=== PATIENT | male | born 1950 | race African-American/Black ===

== ENCOUNTER 2017-01-12 14:14 | Inpatient (IN) | payer OTHER, MEDICARE ==
[2017-01-12] VITALS (9 sets, daily range): BP systolic 88–127; BP diastolic 58–86; PULSE 78–116; RESP 15–20; TEMP 98.8–100.5; O2SAT 95–98
[~2017-01-12] VITALS: Ht 175.3 cm; Wt 86.9 kg
[~2017-01-12 14:14] MED LIST: 1-ME1LIQ PO; ACET325 PO; ASPI325T PO; BUSP5 PO; CIPROFLOXACIN 400 MG PREMIX 200 ML IV SCH; DIAZ10 PO; FLUO-1 PO; HYDR-2768 PO; HYDRO50 PO; LISI-366 PO; OMEP20TA39 PO; PRAV40 PO; PULM180I PO; SERT-129 PO; VIAG50TA PO
[2017-01-12] MEDS ORDERED: FISHCAP4 PO (14:47)
[2017-01-12] MEDS ORDERED: AMLO5TAB2 PO (14:47)
[2017-01-12] MEDS ORDERED: HYDR50TA94 PO (14:47)
[2017-01-12] MEDS ORDERED: ASPI325T PO (14:47)
[2017-01-12] MEDS ORDERED: SILD20TA11 PO (14:47)
[2017-01-12] MEDS ORDERED: LISI20TA3 PO (14:47)
[2017-01-12] MEDS ORDERED: POLY99.0 EACH EYE (14:47)
[2017-01-12] MEDS ORDERED: SYMB80AE INH (14:47)
[2017-01-12] MEDS ORDERED: DIAZ10 PO (14:47)
[2017-01-12] MEDS ORDERED: PRAV40TA2 PO (14:47)
[2017-01-12] MEDS ORDERED: OMEP20TA PO (14:47)
[2017-01-12] MEDS ORDERED: SERT-132 PO (14:47)
[2017-01-12] MEDS ORDERED: MORPHINE SULFATE 4 MG/ML INJ IV PUSH ONE (15:00)
[2017-01-12] MEDS ORDERED: SODIUM CHLORIDE 0.9% FLUSH 10 ML FLUSH IV FLUSH PRN (15:00)
[2017-01-12] MEDS ORDERED: ONDANSETRON HCL 4 MG/2 ML VIAL IVP ONE (15:00)
[2017-01-12] MEDS ORDERED: SODIUM CHLOR 0.9% 1000 ML INJ 1,000 ML IV SCH (15:00)
--- NOTE | 2017-01-12 15:10 | PD ---
HPI Chief Complaint: Abdominal Pain Time Seen by Provider: 14:53 Travel History International Travel<30 days: No Contact w/Intl Traveler<30days: No Traveled to known affect area: No History of Present Illness HPI Patient is 66-year-old male who presents to emergency room with complaints of abdominal pain with nausea and vomiting. Patient reports that his symptoms all began on Friday, patient reports that he was feeling nauseous and was vomiting. Patient reports that on Friday, he still felt sick so he decided to take mag citrate to try to clear out his bowels. Patient reports that he did have some watery diarrhea after taking mag citrate. He reports that he is not feeling any better at this time. Patient reports that he is having crampy left lower quadrant abdominal pain, that he is feeling nauseous and is vomiting. Patient reports that he is unable to tolerate any fluids by mouth. Patient reports that he tried eating soup today and ended up throwing it up. Patient denies any fevers, he does admit to having chills. Patient denies any diarrhea. Reports that his last bowel movement was on Friday, he did not have a bowel movement today. Patient denies any chest pain or shortness of breath. Patient with no other complaints. Patient reports that he has had a colonoscopy in the past, reports that his last colonoscopy was 2-3 years ago at the [facility], reports that "everything was normal." PFSH Past Medical History Arthritis: No Asthma: No Anxiety: Yes Depression: Yes Heart Rhythm Problems: No Cancer: No Cardiovascular Problems: Yes (htn) High Cholesterol: Yes Chest Pain: No Congestive Heart Failure: No COPD: Yes Cerebrovascular Accident: Yes Diabetes: No Diminished Hearing: No Endocrine: No GERD: Yes Genitourinary: Yes (enlarged prostate) Headaches: Yes Hepatitis: No Hiatal Hernia: No Hypertension: Yes Immune Disorder: No Kidney Stones: No Musculoskeletal: Yes (Neck & Back Pain ) Neurologic: Yes Psychiatric: Yes Reproductive: No Respiratory: Yes (copd) Migraines: No Myocardial Infarction: No Renal Failure: No Seizures: No Sleep Apnea: No Ulcer: No Influenza Vaccination: Yes ?: Not Past Surgical History Appendectomy: No Cholecystectomy: No Pacemaker: No Other Surgery: No Social History Alcohol Use: Yes (socially beer) Tobacco Use: Yes (1/2 PPD X 20 YEARS) Substance Use: No Allergies-Medications (Allergen,Severity, Reaction): Coded Allergies: Penicillin (Verified Allergy, Severe, Anaphylaxis, 06/15/15) Uncoded Allergies: WOOL (Adverse Reaction, Mild, ITCHING, 01/12/17) Reported Meds & Prescriptions Reported Meds & Active Scripts Active Reported Lisinopril-Hctz 20-25 Mg Tab 1 Tab PO DAILY Hydroxyzine HCl 50 Mg Tab 50 Mg PO HS Sertraline (Sertraline HCl) 50 Mg Tab 50 Mg PO DAILY Omeprazole 20 Mg Tab 20 Mg PO DAILY Sildenafil 20 Mg Tab 100 Mg PO HS Pravastatin 40 Mg Tab 40 Mg PO HS Fish Oil + D3 (Fish Oil-Cholecalciferol) 1,200-1,000 Mg-Unit Cap 1 Cap PO DAILY Symbicort Inh (Budesonide/Formoterol Fumarate) 80-4.5 Mcg/Act Aero 2 Puff INH Q12HR Valium (Diazepam) 10 Mg Tab 10 Mg PO BID PRN Aspirin 325 Mg Tab 325 Mg PO DAILY Artificial Tears Opth Drops (Polyvinyl Alcohol) 1.4% Soln 1-2 Drop EACH EYE PRN PRN Amlodipine (Amlodipine Besylate) 5 Mg Tab 5 Mg PO DAILY Review of Systems General / Constitutional: No: Fever Eyes: No: Visual changes HENT: No: Headaches Cardiovascular: No: Chest Pain or Discomfort Respiratory: No: Shortness of Breath Gastrointestinal: Positive: Nausea, Vomiting, Abdominal Pain Genitourinary: No: Dysuria Musculoskeletal: No: Pain Skin: No Rash Neurologic: No: Weakness Psychiatric: No: Depression Endocrine: No: Polydipsia Hematologic/Lymphatic: No: Easy Bruising Physical Exam Narrative GENERAL: Moderate distress SKIN: Focused skin assessment warm/dry. HEAD: Atraumatic. Normocephalic. EYES: Pupils equal and round. No scleral icterus. No injection or drainage. ENT: No nasal bleeding or discharge. Mucous membranes pink and moist. NECK: Trachea midline. No JVD. CARDIOVASCULAR: Regular rate and rhythm. No murmur appreciated. RESPIRATORY: No accessory muscle use. Clear to auscultation. Breath sounds equal bilaterally. GASTROINTESTINAL: Abdomen soft, patient with tenderness and guarding on exam to left lower quadrant MUSCULOSKELETAL: No obvious deformities. No clubbing. No cyanosis. No edema. NEUROLOGICAL: Awake and alert. No obvious cranial nerve deficits. Motor grossly within normal limits. Normal speech. PSYCHIATRIC: Appropriate mood and affect; insight and judgment normal. Data Data Last Documented VS Vital Signs Date Time Temp Pulse Resp B/P Pulse Ox O2 Delivery O2 Flow Rate FiO2 01/12/17 17:00 99.3 87 16 97/65 98 Room Air Orders Complete Blood Count With Diff (01/12/17 15:00) Comprehensive Metabolic Panel (01/12/17 15:00) Lipase (01/12/17 15:00) Prothrombin Time / Inr (Pt) (01/12/17 15:00) Act Partial Throm Time (Ptt) (01/12/17 15:00) Urinalysis - C+S If Indicated (01/12/17 15:00) Ct Abd/Pel W Iv Contrast(Rout) (01/12/17 15:00) Iv Access Insert/Monitor (01/12/17 15:00) Ecg Monitoring (01/12/17 15:00) Oximetry (01/12/17 15:00) Morphine Inj (Morphine Inj) (01/12/17 15:00) Ondansetron Inj (Zofran Inj) (01/12/17 15:00) Sodium Chlor 0.9% 1000 Ml Inj (Ns 1000 M (01/12/17 15:00) Sodium Chloride 0.9% Flush (Ns Flush) (01/12/17 15:00) Lactic Acid Sepsis Protocol (01/12/17 15:06) Blood Culture (01/12/17 15:06) Acetaminophen (Tylenol) (01/12/17 15:15) Iohexol 350 Inj (Omnipaque 350 Inj) (01/12/17 16:16) Ciprofloxacin 400 Mg Premix (Cipro 400 M (01/12/17 17:15) Metronidazole 500 Mg Inj (Flagyl 500 Mg (01/12/17 17:15) Admit Order (Ed Use Only) (01/12/17 17:37) Labs Laboratory Tests Test 01/12/17 01/12/17 01/12/17 15:00 15:15 15:22 White Blood Count 10.9 TH/MM3 Red Blood Count 5.29 MIL/MM3 Hemoglobin 15.4 GM/DL Hematocrit 47.3 % Mean Corpuscular Volume 89.5 FL Mean Corpuscular Hemoglobin 29.1 PG Mean Corpuscular Hemoglobin 32.5 % Concent Red Cell Distribution Width 14.4 % Platelet Count 181 TH/MM3 Mean Platelet Volume 7.3 FL Neutrophils (%) (Auto) 81.2 % Lymphocytes (%) (Auto) 9.4 % Monocytes (%) (Auto) 8.5 % Eosinophils (%) (Auto) 0.2 % Basophils (%) (Auto) 0.7 % Neutrophils # (Auto) 8.9 TH/MM3 Lymphocytes # (Auto) 1.0 TH/MM3 Monocytes # (Auto) 0.9 TH/MM3 Eosinophils # (Auto) 0.0 TH/MM3 Basophils # (Auto) 0.1 TH/MM3 CBC Comment DIFF FINAL Differential Comment Prothrombin Time 11.5 SEC Prothromb Time International 1.0 RATIO Ratio Activated Partial 29.4 SEC Thromboplast Time Sodium Level 137 MEQ/L Potassium Level 3.5 MEQ/L Chloride Level 97 MEQ/L Carbon Dioxide Level 27.9 MEQ/L Anion Gap 12 MEQ/L Blood Urea Nitrogen 8 MG/DL Creatinine 1.00 MG/DL Estimat Glomerular Filtration 91 ML/MIN Rate Random Glucose 111 MG/DL Calcium Level 9.7 MG/DL Total Bilirubin 0.8 MG/DL Aspartate Amino Transf 23 U/L (AST/SGOT) Alanine Aminotransferase 36 U/L (ALT/SGPT) Alkaline Phosphatase 45 U/L Total Protein 8.4 GM/DL Albumin 3.9 GM/DL Lipase 91 U/L Lactic Acid Level 1.5 mmol/L Urine Collection Type CLEAN CATCH Urine Color YELLOW Urine Turbidity CLEAR Urine pH 6.5 Urine Specific [place] 1.009 Urine Protein NEG mg/dL Urine Glucose (UA) NEG mg/dL Urine Ketones NEG mg/dL Urine Occult Blood NEG Urine Nitrite NEG Urine Bilirubin NEG Urine Leukocyte Esterase TRACE Urine RBC 0-3 /hpf Urine WBC 0-2 /hpf Urine Squamous Epithelial 0-5 /hpf Cells Microscopic Urinalysis Comment CULT NOT INDICATED Urine Collection Time 15:22 [facility] Medical Decision Making Medical Screen Exam Complete: Yes Emergency Medical Condition: Yes Interpretation(s) Vital Signs Date Time Temp Pulse Resp B/P Pulse Ox O2 Delivery O2 Flow Rate FiO2 01/12/17 14:30 100.5 116 15 120/86 96 Differential Diagnosis Left lower quadrant abdominal pain differential could include colitis, diverticulitis, UTI, small bowel obstruction, constipation Narrative Course Patient is a 66-year-old male who presents to emergency room complaints of abdominal pain since Friday. Reports that he has been having nausea, vomiting, left lower quadrant abdominal pain which has been persistent since Friday. Patient reports no fevers at home, reports that he is getting the chills. Patient denies any cough or congestion, no chest pain or shortness breath. Patient is tender on palpation to left lower quadrant. Patient denies any history of abdominal surgeries in the past. Plan to obtain IV, lab work, blood cultures and lactic acid is patient is febrile and tachycardic and meets SIRS criteria. Plan to hydrate patient with IVF and obtain ct of abdomen/pelvis. Vital Signs Date Time Temp Pulse Resp B/P Pulse Ox O2 Delivery O2 Flow Rate FiO2 01/12/17 17:00 99.3 87 16 97/65 98 Room Air 01/12/17 15:47 97 18 107/73 98 Room Air 01/12/17 15:30 18 01/12/17 15:08 18 95 Room Air 01/12/17 15:01 99.7 106 16 127/72 95 Room Air 01/12/17 14:30 100.5 116 15 120/86 96 Laboratory Tests Test 01/12/17 01/12/17 01/12/17 15:00 15:15 15:22 White Blood Count 10.9 TH/MM3 (4.0-11.0) Red Blood Count 5.29 MIL/MM3 (4.50-5.90) Hemoglobin 15.4 GM/DL (13.0-17.0) Hematocrit 47.3 % (39.0-51.0) Mean Corpuscular Volume 89.5 FL (80.0-100.0) Mean Corpuscular Hemoglobin 29.1 PG (27.0-34.0) Mean Corpuscular Hemoglobin 32.5 % Concent (32.0-36.0) Red Cell Distribution Width 14.4 % (11.6-17.2) Platelet Count 181 TH/MM3 (150-450) Mean Platelet Volume 7.3 FL (7.0-11.0) Neutrophils (%) (Auto) 81.2 % (16.0-70.0) Lymphocytes (%) (Auto) 9.4 % (9.0-44.0) Monocytes (%) (Auto) 8.5 % (0.0-8.0) Eosinophils (%) (Auto) 0.2 % (0.0-4.0) Basophils (%) (Auto) 0.7 % (0.0-2.0) Neutrophils # (Auto) 8.9 TH/MM3 (1.8-7.7) Lymphocytes # (Auto) 1.0 TH/MM3 (1.0-4.8) Monocytes # (Auto) 0.9 TH/MM3 (0-0.9) Eosinophils # (Auto) 0.0 TH/MM3 (0-0.4) Basophils # (Auto) 0.1 TH/MM3 (0-0.2) CBC Comment DIFF FINAL Differential Comment Prothrombin Time 11.5 SEC (9.8-11.6) Prothromb Time International 1.0 RATIO Ratio Activated Partial 29.4 SEC Thromboplast Time (24.3-30.1) Sodium Level 137 MEQ/L (136-145) Potassium Level 3.5 MEQ/L (3.5-5.1) Chloride Level 97 MEQ/L (98-107) Carbon Dioxide Level 27.9 MEQ/L (21.0-32.0) Anion Gap 12 MEQ/L (5-15) Blood Urea Nitrogen 8 MG/DL (7-18) Creatinine 1.00 MG/DL (0.60-1.30) Estimat Glomerular Filtration 91 ML/MIN (>89) Rate Random Glucose 111 MG/DL (74-106) Calcium Level 9.7 MG/DL (8.5-10.1) Total Bilirubin 0.8 MG/DL (0.2-1.0) Aspartate Amino Transf 23 U/L (15-37) (AST/SGOT) Alanine Aminotransferase 36 U/L (12-78) (ALT/SGPT) Alkaline Phosphatase 45 U/L (45-117) Total Protein 8.4 GM/DL (6.4-8.2) Albumin 3.9 GM/DL (3.4-5.0) Lipase 91 U/L (73-393) Lactic Acid Level 1.5 mmol/L (0.4-2.0) Urine Collection Type CLEAN CATCH Urine Color YELLOW (YELLW/STRAW) Urine Turbidity CLEAR (CLEAR) Urine pH 6.5 (5.0-8.5) Urine Specific [place] 1.009 (1.002-1.035) Urine Protein NEG mg/dL (NEG-TRACE) Urine Glucose (UA) NEG mg/dL (NEG) Urine Ketones NEG mg/dL (NEG) Urine Occult Blood NEG (NEG) Urine Nitrite NEG (NEG) Urine Bilirubin NEG (NEG) Urine Leukocyte Esterase TRACE (NEG) Urine RBC 0-3 /hpf (0-3) Urine WBC 0-2 /hpf (0-5) Urine Squamous Epithelial 0-5 /hpf (0-5) Cells Microscopic Urinalysis Comment CULT NOT INDICATED Urine Collection Time 15:22 Last Impressions Abdomen/Pelvis CT 01/12/17 1500 Signed Impressions: Service Date/Time: Thursday, January 12, 2017 16:06 - CONCLUSION: Acute diverticulitis at the junction between the left colon and sigmoid colon with mural thickening and inflammatory changes. No discrete or drainable abscess. No obstruction or free air or free fluid. Isaac Rutherford MD I reviewed all labs and all studies with patient in detail. Patient unable to eat or drink. Patient given option of going home with prescription for antibiotics and outpatient treatment, requests to be admitted to the hospital as he is not tolerating by mouth's. Case reviewed with Dr. Alarcon who accepts pt to service Sepsis Criteria SIRS Criteria (2 or more): Temp > 100.9 or < 96.8, Heart rate over 90 Diagnosis Primary Impression: Acute diverticulitis Additional Impression: Sepsis Qualified Code: A41.9 - Sepsis, due to unspecified organism Admitting Information Admitting Physician Requests: Admit Kim Milligan DO January 12, 2017 15:10
[2017-01-12] MEDS ORDERED: ACETAMINOPHEN 325 MG TAB PO ONE (15:15)
[2017-01-12 15:17] LABS: AUTOMATED NEUTROPHIL # 8.9 TH/MM3 (1.8-7.7); BASOPHIL # 0.1 TH/MM3 (0-0.2); BASOPHIL % 0.7 % (0.0-2.0); EOSINOPHIL % 0.2 % (0.0-4.0); HEMATOCRIT 47.3 % (39.0-51.0); HEMO FLAGS DIFF FINAL; LYMPH % 9.4 % (9.0-44.0); MEAN CELL VOLUME 89.5 FL (80.0-100.0); MEAN CORPUSCULAR HEMOGLOBIN 29.1 PG (27.0-34.0); MEAN CORPUSCULAR HGB CONC 32.5 % (32.0-36.0); MONO % 8.5 % (0.0-8.0); NEUT % 81.2 % (16.0-70.0); PLATELET COUNT 181 TH/MM3 (150-450); RED BLOOD COUNT 5.29 MIL/MM3 (4.50-5.90); RED CELL DISTRIBUTION WIDTH 14.4 % (11.6-17.2); WHITE BLOOD COUNT 10.9 TH/MM3 (4.0-11.0)
[2017-01-12 15:27] LABS: BLOOD, URINE NEG (NEG); GLUCOSE,URINE NEG (NEG); KETONE, URINE NEG (NEG); NITRITE,URINE NEG (NEG); PH, URINE 6.5 (5.0-8.5)
[2017-01-12 15:31] LABS: CHLORIDE 97 MEQ/L (98-107); POTASSIUM 3.5 MEQ/L (3.5-5.1); SODIUM (NA) 137 MEQ/L (136-145)
[2017-01-12 15:33] LABS: METHOD OF COLLECTION CLEAN CATCH; URINE COLOR YELLOW (YELLW/STRAW)
[2017-01-12 15:34] LABS: ANION GAP 12 MEQ/L (5-15); BICARBONATE 27.9 MEQ/L (21.0-32.0)
[2017-01-12 15:34] LABS: COMMENT (UR) CULT NOT INDICATED; CULTURE IF INDICATED CULT NOT INDICATED; RBC, URINE 0-3 /hpf (0-3); SQUAMOUS EPITHELIAL CELL URINE 0-5 /hpf (0-5); WBC, URINE 0-2 /hpf (0-5)
[2017-01-12 15:35] LABS: BLOOD UREA NITROGEN 8 MG/DL (7-18)
[2017-01-12 15:36] LABS: APTT (PATIENT) 29.4 SEC (24.3-30.1); PROTHROMBIN TIME - PATIENT 11.5 SEC (9.8-11.6)
[2017-01-12 15:37] LABS: ALT (GPT) 36 U/L (12-78); AST (GOT) 23 U/L (15-37); GLOMERULAR FILTRATION RATE 91 ML/MIN (>89)
[2017-01-12 15:39] LABS: TOTAL BILIRUBIN ADULT 0.8 MG/DL (0.2-1.0)
[2017-01-12 15:40] LABS: ALKALINE PHOSPHATASE 45 U/L (45-117)
[2017-01-12] MEDS ORDERED: IOHEXOL 350 MG/ML 10 ML VIAL (for RAD DIAG) IV ONE (16:16)
--- NOTE | 2017-01-12 16:59 | RADHPO ---
EXAM DATE/TIME: 01/12/2017 16:06 [place] COMPARISON: No previous studies available for comparison. INDICATIONS : Left lower quadrant pain. IV CONTRAST: 95 cc Omnipaque 350 (iohexol) IV ORAL CONTRAST: No oral contrast ingested. RADIATION DOSE: 16.32 CTDIvol (mGy) MEDICAL HISTORY : Cerebrovascular disease. Gastroesophageal reflux disease. Chronic obstructive pulmonary disease.Hyper tension. SURGICAL HISTORY : None. ENCOUNTER: Initial ACUITY: 2 days PAIN SCALE: 4/10 LOCATION: Left lower quadrant TECHNIQUE: Volumetric scanning of the abdomen and pelvis was performed. Using automated exposure control and ad justment of the mA and/or kV according to patient size, radiation dose was kept as low as reasonably achievable to obtain optimal diagnostic quality images. FINDINGS: There is an acute diverticulitis at the junction between the left colon and sigmoid colon with mural thickening and pericolonic inflammatory changes. No discrete or drainable abscess. No obstruction, fr ee fluid or free air. Lung bases are clear. Mild fatty liver. Spleen, and she knows, at kidneys and pancreas are unremarkab le. No calcified gallstones. There is a moderate-sized hiatal hernia. No acute bony abnormality. CONCLUSION: Acute diverticulitis at the junction between the left colon and sigmoid colon with mural thickening a nd inflammatory changes. No discrete or drainable abscess. No obstruction or free air or free fluid. Isaac Rutherford MD on January 12, 2017 at 16:54 Board Certified Radiologist. This report was verified electronically.
[2017-01-12] MEDS ORDERED: CIPROFLOXACIN 400 MG PREMIX 200 ML IV ONE (17:15)
[2017-01-12] MEDS ORDERED: metroNIDAZOLE 500 MG INJ 100 ML IV ONE (17:15)
[2017-01-12] MEDS ORDERED: ONDANSETRON HCL 4 MG/2 ML VIAL IVP PRN (18:00)
[2017-01-12] MEDS: metroNIDAZOLE 500 MG INJ 100 ML IV SCH ×2 (18:00→23:39)
[2017-01-12] MEDS ORDERED: ACETAMINOPHEN 325 MG TAB PO PRN (18:00)
--- NOTE | 2017-01-12 18:48 | HHI.HP ---
HPI Service [facility] Hospitalists Primary Care Physician [facility] Admission Diagnosis Acute diverticulitis Diagnoses: Chief Complaint: Left lower quadrant abdominal pain Travel History International Travel<30 Days: No Contact w/Intl Traveler <30 Da: No Traveled to Known Affected Are: No History of Present Illness This is a very pleasant 66-year-old male with past medical history significant for hypertension, hyperlipidemia, PTSD who presents to [facility] complaining of three-day history of left lower quadrant abdominal pain which started on this past Friday and progressively got worst after that point were yesterday the patient states took laxative thinking that the pain was related to constipation, however laxative did not improve the pain. Patient states the pain is localized in the left lower quadrant, nonradiating, 2/3 over 10 intensity, constant but worst on palpation up to an 8 or 9 associated with decreased appetite. The patient states he had chills and subjective fevers. Patient states he he has felt nauseous but denies vomiting. Denies diarrhea, chest pain or shortness of breath. During this interview the patient's blood pressure is in the high 90s systolic. Review of Systems As per history of present illness, other systems reviewed by me and negative. Past Family Social History Past Medical History 1. Hypertension. 2. Hyperlipidemia 3. PTSD 4. Anxiety Past Surgical History Bilateral rotator cuff surgery Colonoscopy 3 years ago. Reported Medications Lisinopril-Hctz 20-25 Mg Tab 1 Tab PO DAILY Hydroxyzine HCl 50 Mg Tab 50 Mg PO HS Sertraline (Sertraline HCl) 50 Mg Tab 50 Mg PO DAILY Omeprazole 20 Mg Tab 20 Mg PO DAILY Sildenafil 20 Mg Tab 100 Mg PO HS Pravastatin 40 Mg Tab 40 Mg PO HS Fish Oil + D3 (Fish Oil-Cholecalciferol) 1,200-1,000 Mg-Unit Cap 1 Cap PO DAILY Symbicort Inh (Budesonide/Formoterol Fumarate) 80-4.5 Mcg/Act Aero 2 Puff INH Q12HR Valium (Diazepam) 10 Mg Tab 10 Mg PO BID PRN Aspirin 325 Mg Tab 325 Mg PO DAILY Artificial Tears Opth Drops (Polyvinyl Alcohol) 1.4% Soln 1-2 Drop EACH EYE PRN PRN Amlodipine (Amlodipine Besylate) 5 Mg Tab 5 Mg PO DAILY Allergies: Coded Allergies: Penicillin (Verified Allergy, Severe, Anaphylaxis, 06/15/15) Uncoded Allergies: WOOL (Adverse Reaction, Mild, ITCHING, 01/12/17) Active Ordered Medications Current Medications Medications (Trade) Dose Ordered Sig/Sujatha Route Start Time Stop Time Status Last Admin Sodium Chloride 2 ml 2 ml UNSCH PRN IV FLUSH 01/12/17 15:00 (NS 1000 ml Inj) 1,000 ml @ 100 mls/hr Q10H IV 01/12/17 17:58 (Tylenol) 650 mg Q4H PRN PO 01/12/17 18:00 (Zofran Inj) 4 mg Q6H PRN IVP 01/12/17 18:00 Heparin Sodium (Porcine) 5000 units 5,000 units Q8HR SQ 01/12/17 22:00 Ciprofloxacin/ Dextrose 200 ml @ 200 mls/hr Q8H IV 01/12/17 01:00 (Flagyl 500 Mg Inj) 100 ml @ 100 mls/hr Q6H IV 01/12/17 18:00 Family History Patient's sister from an [place], diabetes and lung cancer Social History Patient currently smokes cigarettes about 1 pack every 3-4 days. Patient drinks alcohol occasionally on the weekends. Patient denies illicit drug use Patient is 5 times and has many children. Physical Exam Vital Signs Vital Signs Date Time Temp Pulse Resp B/P Pulse Ox O2 Delivery O2 Flow Rate FiO2 01/12/17 17:55 86 16 104/69 95 Room Air 01/12/17 17:00 99.3 87 16 97/65 98 Room Air 01/12/17 15:47 97 18 107/73 98 Room Air 01/12/17 15:30 18 01/12/17 15:08 18 95 Room Air 01/12/17 15:01 99.7 106 16 127/72 95 Room Air 01/12/17 14:30 100.5 116 15 120/86 96 Physical Exam GENERAL: This is a well-nourished, well-developed patient, in no apparent distress. SKIN: No rashes, ecchymoses or lesions. Cool and dry. HEAD: Atraumatic. Normocephalic. No temporal or scalp tenderness. EYES: Pupils equal round and reactive. Extraocular motions intact. No scleral icterus. No injection or drainage. ENT: Nose without bleeding, purulent drainage or septal hematoma. Throat without erythema, tonsillar hypertrophy or exudate. Uvula midline. Airway patent. NECK: Trachea midline. No JVD or lymphadenopathy. Supple, nontender, no meningeal signs. CARDIOVASCULAR: Regular rate and rhythm without murmurs, gallops, or rubs. RESPIRATORY: Clear to auscultation. Breath sounds equal bilaterally. No wheezes , rales, or rhonchi. GASTROINTESTINAL: Abdomen soft, right lower quadrant tenderness, nondistended. No hepato-splenomegaly, or palpable masses. There is voluntary guarding. MUSCULOSKELETAL: Extremities without clubbing, cyanosis, or edema. No joint tenderness, effusion, or edema noted. No calf tenderness. Negative Homans sign bilaterally. NEUROLOGICAL: Awake and alert. Cranial nerves II through XII intact. Motor and sensory grossly within normal limits. Five out of 5 muscle strength in all muscle groups. Normal speech. Laboratory Laboratory Tests Test 01/12/17 01/12/17 01/12/17 15:00 15:15 15:22 White Blood Count 10.9 Red Blood Count 5.29 Hemoglobin 15.4 Hematocrit 47.3 Mean Corpuscular Volume 89.5 Mean Corpuscular Hemoglobin 29.1 Mean Corpuscular Hemoglobin 32.5 Concent Red Cell Distribution Width 14.4 Platelet Count 181 Mean Platelet Volume 7.3 Neutrophils (%) (Auto) 81.2 Lymphocytes (%) (Auto) 9.4 Monocytes (%) (Auto) 8.5 Eosinophils (%) (Auto) 0.2 Basophils (%) (Auto) 0.7 Neutrophils # (Auto) 8.9 Lymphocytes # (Auto) 1.0 Monocytes # (Auto) 0.9 Eosinophils # (Auto) 0.0 Basophils # (Auto) 0.1 CBC Comment DIFF FINAL Differential Comment Prothrombin Time 11.5 Prothromb Time International 1.0 Ratio Activated Partial 29.4 Thromboplast Time Sodium Level 137 Potassium Level 3.5 Chloride Level 97 Carbon Dioxide Level 27.9 Anion Gap 12 Blood Urea Nitrogen 8 Creatinine 1.00 Estimat Glomerular Filtration 91 Rate Random Glucose 111 Calcium Level 9.7 Total Bilirubin 0.8 Aspartate Amino Transf 23 (AST/SGOT) Alanine Aminotransferase 36 (ALT/SGPT) Alkaline Phosphatase 45 Total Protein 8.4 Albumin 3.9 Lipase 91 Lactic Acid Level 1.5 Urine Collection Type CLEAN CATCH Urine Color YELLOW Urine Turbidity CLEAR Urine pH 6.5 Urine Specific [place] 1.009 Urine Protein NEG Urine Glucose (UA) NEG Urine Ketones NEG Urine Occult Blood NEG Urine Nitrite NEG Urine Bilirubin NEG Urine Leukocyte Esterase TRACE Urine RBC 0-3 Urine WBC 0-2 Urine Squamous Epithelial 0-5 Cells Microscopic Urinalysis Comment CULT NOT INDICATED Urine Collection Time 15:22 Date/Time Procedure Status Source Growth 01/12/17 15:20 Aerobic Blood Culture Received Blood Peripheral Pending 01/12/17 15:20 Anaerobic Blood Culture Received Blood Peripheral Pending Result Diagram: 01/12/17 1500 01/12/17 1500 Imaging Last Impressions Abdomen/Pelvis CT 01/12/17 1500 Signed Impressions: Service Date/Time: Thursday, January 12, 2017 16:06 - CONCLUSION: Acute diverticulitis at the junction between the left colon and sigmoid colon with mural thickening and inflammatory changes. No discrete or drainable abscess. No obstruction or free air or free fluid. Isaac Rutherford MD Reviewed by me Assessment and Plan Problem List: (1) Acute diverticulitis ICD Code: K57.92 Status: Acute Plan: Method the patient to the medical floor Continue IV fluids Will keep the patient nothing by mouth for tonight. Continue IV ciprofloxacin and IV Flagyl Pain control with IV morphine Consult general surgery. (2) HTN (hypertension) ICD Code: I10 Status: Chronic Plan: Hold antihypertensive medications due to hypotension. (3) Hyperlipidemia ICD Code: E78.5 Status: Acute Plan: Hold statin for now (4) Hypotension ICD Code: I95.9 Status: Acute Plan: Static blood pressure in the 90s. I will continue IV fluids and monitor vital signs. Assessment and Plan GI prophylaxis: We'll place on PPI. DVT prophylaxis: SCDs, heparin subcutaneous. Code Status Full code Discussed Condition With ED physician, patient Physician Certification 2 Midnight Certification Type: Admission for Inpatient Services Order for Inpatient Services The services are ordered in accordance with Medicare regulations or non- Medicare payer requirements, as applicable. In the case of services not specified as inpatient-only, they are appropriately provided as inpatient services in accordance with the 2-midnight benchmark. Estimated LOS (days): 2 days is the estimated time the patient will need to remain in the hospital, assuming treatment plan goals are met and no additional complications. Post-Hospital Plan: Home Problem Qualifiers (1) HTN (hypertension): Qualified Code: I10 - Essential hypertension (2) Hyperlipidemia: Qualified Code: E78.5 - Hyperlipidemia, unspecified hyperlipidemia type (3) Hypotension: Qualified Code: I95.9 - Hypotension, unspecified hypotension type Cameron Figueroa MD January 12, 2017 18:48
[2017-01-12] MEDS ORDERED: MORPHINE SULFATE 4 MG/ML INJ IV PUSH PRN ×2 (19:15)
[2017-01-12] MEDS: SODIUM CHLOR 0.9% 1000 ML INJ 1,000 ML IV SCH (19:48)
[2017-01-12] MEDS: HEPARIN SODIUM - SQ 10,000 UNITS/ML VIAL SQ SCH (21:17)
[2017-01-13] VITALS (7 sets, daily range): BP systolic 88–108; BP diastolic 62–73; PULSE 70–82; RESP 18–20; TEMP 98.1–99; O2SAT 94–98
[2017-01-13] MEDS: CIPROFLOXACIN 400 MG PREMIX 200 ML IV SCH ×3 (01:00→17:38)
--- NOTE | 2017-01-13 04:34 | MB ---
cc: ALONZO PANIAGUA MD DATE OF CONSULTATION 01/12/2017 REASON FOR CONSULTATION Abdominal pain, diverticulitis. HISTORY OF PRESENT ILLNESS The patient is a 66-year-old male who presents with acute onset of left lower quadrant pain. He states the pain started around Friday and continued to get worse. He states the pain was sharp initially at 3/10, progressed to a 10/10, currently is a 2/10. He states Friday he noticed the pain feeling in his abdomen. He took a laxative without any improvement on Friday and again it continued to increase. He has had much more mild pain six months ago which he said resolved on its own. He came to emergency department for further evaluation in [place] with findings of WBC of 10.[address] scan showing acute inflamed diverticulitis, no abscess. Therefore General Surgery was consulted for further evaluation. On my exam the patient is resting comfortably. He states he does have left lower quadrant pain. However, it is improved with pain medication but still persistent with palpation. He further denies diarrhea, constipation or fevers or chills. He did have an episode of nausea and vomiting. He denies any significant weight loss. He did note a colonoscopy 3 years ago and states it was normal. PAST MEDICAL HISTORY 1. Hypertension. 2. Hypercholesteremia. 3. PTSD, anxiety. PAST SURGICAL HISTORY 1. Bilateral rotator cuff. 2. Colonoscopy. MEDICATIONS See EMR. ALLERGIES PENICILLIN. FAMILY HISTORY Sister with an AL, diabetes, lung cancer. SOCIAL HISTORY The patient smokes one pack every 3 days. Occasional ETOH. Denies IVDA. REVIEW OF SYSTEMS GENERAL: The patient denies headaches. HEENT: Denies eye pain, ear pain. NECK: Denies swelling or pain. LUNGS: Denies cough or wheeze. HEART: Denies palpitations or chest pain. ABDOMEN: Complained of nausea, vomiting, abdominal pain. SKIN: Denies lesions or masses. : Denies dysuria, hematuria. ENDOCRINE: Denies polyuria, polydipsia. PSYCH: Denies change in mood. History of PTSD. HEMATOLOGIC: Denies easy bruising or hemarthrosis. PHYSICAL EXAMINATION GENERAL: The patient no acute distress. VITAL SIGNS: Temperature 99.3, pulse 86, respirations 16, blood pressure 104/69, pulse ox 95% on room air. HEENT: PERRLA, EOMI. NECK: Supple. Trachea midline. LUNGS: Clear to auscultation bilateral. Bilateral expansion. HEART: S1-S2, regular rhythm. ABDOMEN: Soft. Positive tenderness to palpation. Positive guarding, left lower quadrant. No peritoneal signs. EXTREMITIES: Warm, well-perfused. Moving all extremities. NEUROLOGIC: Awake, alert, A&O x 3. Motor and sensation intact. BACK: Normal curvature. no step-offs side. PSYCHIATRIC: Good insignt, good judgment. LABORATORY/DIAGNOSTIC DATA WBC 10.9, hemoglobin 15.4, hematocrit 47.3, platelets 181. Sodium 137, potassium 3.5, chloride 97, BUN 8, creatinine 1, glucose 111. T-bili is 0.8, AST 23, ALT 36, alk phos 45, lipase 91, lactate 1.5. IMAGING STUDIES CT of the abdomen and pelvis reviewed by myself - Diverticulitis sigmoid left colon, thickening, inflammatory changes. No obvious abscess. No free fluid. No free air. ASSESSMENT The patient is a 66-year-old male acute with onset of acute diverticulitis. PLAN After a full clinical and radiologic laboratory workup, the patient with above-named issue including acute diverticulitis. At this point recommend admit to Medicine, IV pain control, IV antibiotics, bowel rest, serial abdominal exams. Discussed with the patient in detail regarding etiology and pathophysiology of diverticulitis and outcomes. At this point we will continue abdominal exams and observe the patient. If change in patient's clinical status, may consider repeat CT scan for evaluation. However, if the patient improves clinically, I told the patient he likely would be discharged and be reevaluated in 4-6 weeks. This was discussed with the patient in detail. We will continue to follow. Thank you for the consultation. MD KERRIE Castellanos/TRIXIE /10:15 PM /4:20 AM
[2017-01-13] MEDS: metroNIDAZOLE 500 MG INJ 100 ML IV SCH ×4 (06:00→22:29)
[2017-01-13] MEDS: HEPARIN SODIUM - SQ 10,000 UNITS/ML VIAL SQ SCH ×3 (06:00→22:29)
[2017-01-13 06:53] LABS: AUTOMATED NEUTROPHIL # 5.5 TH/MM3 (1.8-7.7); BASOPHIL % 0.1 % (0.0-2.0); EOSINOPHIL # 0.1 TH/MM3 (0-0.4); EOSINOPHIL % 1.1 % (0.0-4.0); HEMATOCRIT 39.7 % (39.0-51.0); HEMO FLAGS DIFF FINAL; LYMPH % 17.5 % (9.0-44.0); LYMPHOCYTE # 1.4 TH/MM3 (1.0-4.8); MEAN CELL VOLUME 89.7 FL (80.0-100.0); MEAN CORPUSCULAR HEMOGLOBIN 30.2 PG (27.0-34.0); MEAN CORPUSCULAR HGB CONC 33.6 % (32.0-36.0); MONO % 10.8 % (0.0-8.0); NEUT % 70.5 % (16.0-70.0); PLATELET COUNT 139 TH/MM3 (150-450); RED BLOOD COUNT 4.42 MIL/MM3 (4.50-5.90); RED CELL DISTRIBUTION WIDTH 13.9 % (11.6-17.2); WHITE BLOOD COUNT 7.8 TH/MM3 (4.0-11.0)
[2017-01-13 06:58] LABS: CHLORIDE 99 MEQ/L (98-107); POTASSIUM 3.3 MEQ/L (3.5-5.1); SODIUM (NA) 139 MEQ/L (136-145)
[2017-01-13 07:29] LABS: ALKALINE PHOSPHATASE 36 U/L (45-117); ALT (GPT) 24 U/L (12-78); ANION GAP 9 MEQ/L (5-15); AST (GOT) 16 U/L (15-37); BICARBONATE 31.1 MEQ/L (21.0-32.0); BLOOD UREA NITROGEN 9 MG/DL (7-18); GLOMERULAR FILTRATION RATE 81 ML/MIN (>89)
[2017-01-13] MEDS ORDERED: SODIUM CHLORID 0.9% 500 ML INJ 500 ML IV ONE (08:45)
[2017-01-13] MEDS: SODIUM CHLOR 0.9% 1000 ML INJ 1,000 ML IV SCH ×3 (09:48→23:58)
[2017-01-13] MEDS: POTASSIUM CHLOR 20 MEQ PREMIX 100 ML IV SCH ×2 (09:50→12:13)
--- NOTE | 2017-01-13 11:50 | HHI.PR ---
Subjective Remarks Patient states abdominal pain is improved denies fevers/chills denies nausea or vomiting feels hungry stable vital signs Objective Vitals Vital Signs Date Time Temp Pulse Resp B/P Pulse Ox O2 Delivery O2 Flow Rate FiO2 01/13/17 08:00 99.0 80 18 104/71 94 01/13/17 04:00 98.1 81 20 89/62 94 01/13/17 00:05 70 01/13/17 00:00 98.6 78 20 107/69 98 01/12/17 20:15 84 18 108/58 99 01/12/17 20:00 98.8 78 20 88/65 97 01/12/17 19:10 99.7 81 18 107/67 97 Room Air 01/12/17 17:55 86 16 104/69 95 Room Air 01/12/17 17:00 99.3 87 16 97/65 98 Room Air 01/12/17 15:47 97 18 107/73 98 Room Air 01/12/17 15:30 18 01/12/17 15:08 18 95 Room Air 01/12/17 15:01 99.7 106 16 127/72 95 Room Air 01/12/17 14:30 100.5 116 15 120/86 96 I/O 01/12/17 01/12/17 01/12/17 01/13/17 01/13/17 01/13/17 06:59 14:59 22:59 06:59 14:59 22:59 Intake Total 1340 ml 625 ml Output Total 525 ml 425 ml Balance 815 ml 200 ml Intake Oral 240 ml 240 ml IV Total 1100 ml 385 ml Output Urine Total 525 ml 425 ml # Voids 8 Result Diagram: 01/13/17 0550 01/13/17 0550 Imaging Last Impressions Abdomen/Pelvis CT 01/12/17 1500 Signed Impressions: Service Date/Time: Thursday, January 12, 2017 16:06 - CONCLUSION: Acute diverticulitis at the junction between the left colon and sigmoid colon with mural thickening and inflammatory changes. No discrete or drainable abscess. No obstruction or free air or free fluid. Isaac Rutherford MD Objective Remarks GENERAL: This is a well-nourished, well-developed patient, in no apparent distress. SKIN: No rashes, ecchymoses or lesions. Cool and dry. HEAD: Atraumatic. Normocephalic. No temporal or scalp tenderness. EYES: Pupils equal round and reactive. Extraocular motions intact. No scleral icterus. No injection or drainage. ENT: Nose without bleeding, purulent drainage or septal hematoma. Throat without erythema, tonsillar hypertrophy or exudate. Uvula midline. Airway patent. NECK: Trachea midline. No JVD or lymphadenopathy. Supple, nontender, no meningeal signs. CARDIOVASCULAR: Regular rate and rhythm without murmurs, gallops, or rubs. RESPIRATORY: Clear to auscultation. Breath sounds equal bilaterally. No wheezes , rales, or rhonchi. GASTROINTESTINAL: Abdomen soft, right lower quadrant tenderness, nondistended. No hepato-splenomegaly, or palpable masses. There is voluntary guarding. MUSCULOSKELETAL: Extremities without clubbing, cyanosis, or edema. No joint tenderness, effusion, or edema noted. No calf tenderness. Negative Homans sign bilaterally. NEUROLOGICAL: Awake and alert. Cranial nerves II through XII intact. Motor and sensory grossly within normal limits. Five out of 5 muscle strength in all muscle groups. Normal speech. Medications and IVs Current Medications Medications (Trade) Dose Ordered Sig/Sujatha Route Start Time Stop Time Status Last Admin Sodium Chloride 2 ml 2 ml UNSCH PRN IV FLUSH 01/12/17 15:00 (NS 1000 ml Inj) 1,000 ml @ 100 mls/hr Q10H IV 01/12/17 17:58 01/13/17 09:48 (Tylenol) 650 mg Q4H PRN PO 01/12/17 18:00 (Zofran Inj) 4 mg Q6H PRN IVP 01/12/17 18:00 Heparin Sodium (Porcine) 5000 units 5,000 units Q8HR SQ 01/12/17 22:00 01/13/17 06:00 Metronidazole 100 ml @ 100 mls/hr Q6H IV 01/12/17 18:00 01/13/17 06:00 (Cipro 400 Mg Premix) 200 ml @ 200 mls/hr Q8H IV 01/13/17 01:00 01/13/17 09:50 (Morphine Inj) 2 mg Q3H PRN IV PUSH 01/12/17 19:15 Morphine Sulfate 4 mg 4 mg Q3H PRN IV PUSH 01/12/17 19:15 (KCl 20 Meq Premix Inj) 100 ml @ 50 mls/hr Q2H IV 01/13/17 08:45 01/13/17 12:44 01/13/17 09:50 (Symbicort 80-4.5 Mcg Inh) 2 puff Q12HR INH 01/13/17 21:00 (Valium) 10 mg BID PRN PO 01/13/17 12:00 (Atarax) 50 mg HS PO 01/13/17 21:00 (Zoloft) 50 mg DAILY PO 01/13/17 12:00 (Protonix) 20 mg DAILY PO 01/13/17 12:00 A/P Problem List: (1) Acute diverticulitis ICD Code: K57.92 Status: Acute Plan: Patient was admitted to the medical floor Continue IV fluids The patient was kept nothing by mouth. Continue IV ciprofloxacin and IV Flagyl continue control with IV morphine. General surgery consulted and following - appreciate recommendations (2) HTN (hypertension) ICD Code: I10 Status: Chronic Plan: Hold antihypertensive medications due to hypotension. (3) Hyperlipidemia ICD Code: E78.5 Status: Acute Plan: Hold statin for now (4) Hypotension ICD Code: I95.9 Status: Acute Plan: Static blood pressure in the 90s on admission - started on Iv fluids 01/13 BP low today in the high 80's - ordered 500 ml ns IV bolus, continue to hold bp meds. (5) Anxiety ICD Code: F41.9 Status: Chronic Plan: Will continue home Diazepam as needed. (6) Tobacco use ICD Code: Z72.0 Status: Chronic Plan: Advised smoking cessation. Will Rx nicotine patch Assessment and Plan GI prophylaxis: PPI DVT prophylaxis: heparin SQ, SCD's Problem Qualifiers (1) HTN (hypertension): Qualified Code: I10 - Essential hypertension (2) Hyperlipidemia: Qualified Code: E78.5 - Hyperlipidemia, unspecified hyperlipidemia type (3) Hypotension: Qualified Code: I95.9 - Hypotension, unspecified hypotension type Cameron Figueroa MD January 13, 2017 11:50
[2017-01-13] MEDS: DIAZEPAM 10 MG TAB PO PRN ×2 (12:13→22:28)
[2017-01-13] MEDS: PANTOPRAZOLE SOD 20 MG DELAYED RELEASE TAB PO SCH (12:13)
[2017-01-13] MEDS: SERTRALINE HCL 50 MG TAB PO SCH (12:16)
--- NOTE | 2017-01-13 19:20 | HHI.PR ---
Subjective Subjective Notes Resting in bed Reports pain better today Objective Vitals/I&O Vital Signs Date Time Temp Pulse Resp B/P Pulse Ox O2 Delivery O2 Flow Rate FiO2 01/13/17 16:00 98.8 75 19 88/64 95 01/12/17 19:10 Room Air Labs Laboratory Tests Test 01/13/17 05:50 White Blood Count 7.8 Red Blood Count 4.42 Hemoglobin 13.3 Hematocrit 39.7 Mean Corpuscular Volume 89.7 Mean Corpuscular Hemoglobin 30.2 Mean Corpuscular Hemoglobin 33.6 Concent Red Cell Distribution Width 13.9 Platelet Count 139 Mean Platelet Volume 7.2 Neutrophils (%) (Auto) 70.5 Lymphocytes (%) (Auto) 17.5 Monocytes (%) (Auto) 10.8 Eosinophils (%) (Auto) 1.1 Basophils (%) (Auto) 0.1 Neutrophils # (Auto) 5.5 Lymphocytes # (Auto) 1.4 Monocytes # (Auto) 0.8 Eosinophils # (Auto) 0.1 Basophils # (Auto) 0.0 CBC Comment DIFF FINAL Differential Comment Sodium Level 139 Potassium Level 3.3 Chloride Level 99 Carbon Dioxide Level 31.1 Anion Gap 9 Blood Urea Nitrogen 9 Creatinine 1.10 Estimat Glomerular Filtration 81 Rate Random Glucose 90 Calcium Level 8.7 Total Bilirubin 1.0 Aspartate Amino Transf 16 (AST/SGOT) Alanine Aminotransferase 24 (ALT/SGPT) Alkaline Phosphatase 36 Total Protein 6.9 Albumin 3.1 Date/Time Procedure Status Source Growth 01/12/17 15:20 Aerobic Blood Culture - Preliminary Resulted Blood Peripheral NO GROWTH IN 1 DAY 01/12/17 15:20 Anaerobic Blood Culture - Preliminary Resulted Blood Peripheral NO GROWTH IN 1 DAY Cardiovascular: Regular Lungs: Clear Abdomen: Other (minimal LLQ pain with palpation; otherwise soft ) Extremities: No edema A/P Assessment and Plan 66 year old male with acute diverticulitis -Continue to monitor WBC -IVF -IV Antibiotics -Labs in AM -Clears -Continue non op treatment Attending Statement patient seen at bedside no fevers pain better c/w abd exams Attestation The exam, history, and the medical decision-making described in the above note were completed with the assistance of the mid-level provider. I reviewed and agree with the findings presented. I attest that I had a [id number] encounter with the patient on the same day, and personally performed and documented my assessment and findings in the medical record. Jenn Escalera January 13, 2017 19:20 Shin Weeks MD January 18, 2017 17:18
[2017-01-13] MEDS: hydrOXYzine HCL 50 MG TAB PO SCH (20:20)
[2017-01-13] MEDS: BUDESONIDE-FORMOTEROL 80/4.5 MCG INHALER INH SCH (20:20)
[2017-01-14] VITALS (7 sets, daily range): BP systolic 106–151; BP diastolic 72–97; PULSE 61–73; RESP 16–20; TEMP 97.3–98.6; O2SAT 97–100
[2017-01-14] MEDS: CIPROFLOXACIN 400 MG PREMIX 200 ML IV SCH ×2 (01:17→08:54)
[2017-01-14 05:43] LABS: AUTOMATED NEUTROPHIL # 3.5 TH/MM3 (1.8-7.7); BASOPHIL % 0.1 % (0.0-2.0); EOSINOPHIL # 0.1 TH/MM3 (0-0.4); EOSINOPHIL % 2.5 % (0.0-4.0); HEMATOCRIT 40.4 % (39.0-51.0); HEMO FLAGS DIFF FINAL; LYMPH % 24.3 % (9.0-44.0); LYMPHOCYTE # 1.3 TH/MM3 (1.0-4.8); MEAN CELL VOLUME 90.4 FL (80.0-100.0); MEAN CORPUSCULAR HEMOGLOBIN 29.8 PG (27.0-34.0); MEAN CORPUSCULAR HGB CONC 32.9 % (32.0-36.0); MONO % 9.2 % (0.0-8.0); NEUT % 63.9 % (16.0-70.0); PLATELET COUNT 149 TH/MM3 (150-450); RED BLOOD COUNT 4.48 MIL/MM3 (4.50-5.90); RED CELL DISTRIBUTION WIDTH 13.7 % (11.6-17.2); WHITE BLOOD COUNT 5.4 TH/MM3 (4.0-11.0)
[2017-01-14] MEDS: metroNIDAZOLE 500 MG INJ 100 ML IV SCH (05:50)
[2017-01-14] MEDS: HEPARIN SODIUM - SQ 10,000 UNITS/ML VIAL SQ SCH ×3 (05:55→22:48)
[2017-01-14 06:09] LABS: ALKALINE PHOSPHATASE 33 U/L (45-117); ALT (GPT) 22 U/L (12-78); ANION GAP 8 MEQ/L (5-15); AST (GOT) 17 U/L (15-37); BICARBONATE 28.7 MEQ/L (21.0-32.0); BLOOD UREA NITROGEN 7 MG/DL (7-18); CHLORIDE 107 MEQ/L (98-107); GLOMERULAR FILTRATION RATE 91 ML/MIN (>89); MAGNESIUM 2.4 MG/DL (1.5-2.5); POTASSIUM 3.8 MEQ/L (3.5-5.1); SODIUM (NA) 144 MEQ/L (136-145); TOTAL BILIRUBIN ADULT 0.7 MG/DL (0.2-1.0)
--- NOTE | 2017-01-14 08:15 | HHI.PR ---
Subjective Subjective Notes no issues, wbc normal, +bm, no fevers Objective Vitals/I&O Vital Signs Date Time Temp Pulse Resp B/P Pulse Ox O2 Delivery O2 Flow Rate FiO2 01/14/17 04:00 98.3 70 18 117/80 97 01/12/17 19:10 Room Air Labs Laboratory Tests Test 01/14/17 05:04 White Blood Count 5.4 Red Blood Count 4.48 Hemoglobin 13.3 Hematocrit 40.4 Mean Corpuscular Volume 90.4 Mean Corpuscular Hemoglobin 29.8 Mean Corpuscular Hemoglobin 32.9 Concent Red Cell Distribution Width 13.7 Platelet Count 149 Mean Platelet Volume 7.1 Neutrophils (%) (Auto) 63.9 Lymphocytes (%) (Auto) 24.3 Monocytes (%) (Auto) 9.2 Eosinophils (%) (Auto) 2.5 Basophils (%) (Auto) 0.1 Neutrophils # (Auto) 3.5 Lymphocytes # (Auto) 1.3 Monocytes # (Auto) 0.5 Eosinophils # (Auto) 0.1 Basophils # (Auto) 0.0 CBC Comment DIFF FINAL Differential Comment Sodium Level 144 Potassium Level 3.8 Chloride Level 107 Carbon Dioxide Level 28.7 Anion Gap 8 Blood Urea Nitrogen 7 Creatinine 1.00 Estimat Glomerular Filtration 91 Rate Random Glucose 90 Calcium Level 8.6 Phosphorus Level 2.6 Magnesium Level 2.4 Total Bilirubin 0.7 Aspartate Amino Transf 17 (AST/SGOT) Alanine Aminotransferase 22 (ALT/SGPT) Alkaline Phosphatase 33 Total Protein 6.6 Albumin 2.9 Date/Time Procedure Status Source Growth 01/12/17 15:20 Aerobic Blood Culture - Preliminary Resulted Blood Peripheral NO GROWTH IN 1 DAY 01/12/17 15:20 Anaerobic Blood Culture - Preliminary Resulted Blood Peripheral NO GROWTH IN 1 DAY Abdomen: Other (soft, +ttp llq, better) A/P Assessment and Plan 66 year old male with acute diverticulitis -Continue to monitor WBC -IVF, wean -IV Antibiotics -transition to po abx if ok with primary -Labs in AM -Clears, increase to fulls -d/c planning -Continue non op treatment Attending Statement patient seen at bedside pt stable wbc normal d/c planning Attestation The exam, history, and the medical decision-making described in the above note were completed with the assistance of the mid-level provider. I reviewed and agree with the findings presented. I attest that I had a [id number] encounter with the patient on the same day, and personally performed and documented my assessment and findings in the medical record. Shin Weeks MD January 14, 2017 08:15
[2017-01-14] MEDS: PANTOPRAZOLE SOD 20 MG DELAYED RELEASE TAB PO SCH (08:53)
[2017-01-14] MEDS: SERTRALINE HCL 50 MG TAB PO SCH (08:53)
[2017-01-14] MEDS: BUDESONIDE-FORMOTEROL 80/4.5 MCG INHALER INH SCH ×2 (08:53→23:22)
--- NOTE | 2017-01-14 09:00 | PD.PN.STU ---
Subjective Remarks Patient is a 66 year old gentleman who presented to the ED 01/12 with a 3 day complaint of LLQ abdominal pain. He was found to have acute diverticulitis. Since then his pain is much improved. He previously had diffuse abdominal pain and now has minimal tenderness with palpation in LLQ. He has soft stools with no blood. He denies nausea/vomiting, diarrhea, pain with urination/defecation. He has no acute complaints today. Objective Vitals General: This is a well-nourished, well-developed man, in no apparent distress. Skin: No rashes, ecchymoses or lesions. Cool and dry. Head: Atraumatic. Normocephalic. Oral mucosa is pink and moist. Eyes: Pupils equal round and reactive. Extraocular motions intact. No scleral icterus. No injection or drainage. ENT: Throat without erythema. Neck: Trachea midline. No JVD. Cardiovascular: S1S2 RRR without murmurs, gallops, or rubs. Respiratory: Clear to auscultation. Breath sounds equal bilaterally. No wheezes , rales, or rhonchi. Gastrointestinal: Abdomen soft, left lower quadrant tenderness with deep palpation, nondistended. No hepato-splenomegaly, or palpable masses. Musculoskeletal: Extremities without clubbing, cyanosis, or edema. No calf tenderness. Neurological: Awake and alert. Cranial nerves II through XII intact. Normal speech. Vital Signs Date Time Temp Pulse Resp B/P Pulse Ox O2 Delivery O2 Flow Rate FiO2 01/14/17 04:00 98.3 70 18 117/80 97 01/14/17 00:00 97.5 69 20 106/72 100 01/13/17 20:00 70 01/13/17 20:00 98.1 71 18 108/73 98 01/13/17 16:00 98.8 75 19 88/64 95 01/13/17 12:00 98.1 82 18 103/67 96 I/O 01/13/17 01/13/17 01/13/17 01/14/17 01/14/17 01/14/17 06:59 14:59 22:59 06:59 14:59 22:59 Intake Total 625 ml 360 ml 640 ml 1040 ml Output Total 425 ml 650 ml 2050 ml 300 ml Balance 200 ml -290 ml -1410 ml 740 ml Intake Oral 240 ml 360 ml 240 ml 240 ml IV Total 385 ml 400 ml 800 ml Output Urine Total 425 ml 650 ml 2050 ml 300 ml # Bowel Movements 0 0 0 Result Diagram: 01/14/1750301/14/17503 A/P Assessment and Plan Acute diverticulitis: Pain improving, still some LLQ tenderness Switch IV Cipro to PO Switch IV Metronidazole to PO Full liquids diet as tolerated HTN: Continue to hold as BP well controlled HPL: Continue home medication Hypotension: Resolved Tobacco use: Discussed importance of cessation Anxiety: Diazepam prn Hypoalbuminemia: Likely inflammatory response Continue to monitor Andres Brown M3 January 14, 2017 09:00
[2017-01-14] MEDS: DIAZEPAM 10 MG TAB PO PRN ×2 (10:16→21:52)
[2017-01-14] MEDS: SODIUM CHLOR 0.9% 1000 ML INJ 1,000 ML IV SCH (10:16)
--- NOTE | 2017-01-14 11:20 | HHI.PR ---
Subjective Remarks Patient states abdominal pain is improving. Denies nausea, vomiting or abdominal pain. Tolerating clear liquid diet. Stable vital signs, febrile. Objective Vitals Vital Signs Date Time Temp Pulse Resp B/P Pulse Ox O2 Delivery O2 Flow Rate FiO2 01/14/17 08:00 97.9 68 16 117/79 97 01/14/17 04:00 98.3 70 18 117/80 97 01/14/17 00:00 97.5 69 20 106/72 100 01/13/17 20:00 70 01/13/17 20:00 98.1 71 18 108/73 98 01/13/17 16:00 98.8 75 19 88/64 95 01/13/17 12:00 98.1 82 18 103/67 96 I/O 01/13/17 01/13/17 01/13/17 01/14/17 01/14/17 01/14/17 06:59 14:59 22:59 06:59 14:59 22:59 Intake Total 625 ml 360 ml 640 ml 1040 ml Output Total 425 ml 650 ml 2050 ml 300 ml Balance 200 ml -290 ml -1410 ml 740 ml Intake Oral 240 ml 360 ml 240 ml 240 ml IV Total 385 ml 400 ml 800 ml Output Urine Total 425 ml 650 ml 2050 ml 300 ml # Bowel Movements 0 0 0 Result Diagram: 01/14/17 0504 01/14/17 0504 Imaging Last Impressions Abdomen/Pelvis CT 01/12/17 1500 Signed Impressions: Service Date/Time: Thursday, January 12, 2017 16:06 - CONCLUSION: Acute diverticulitis at the junction between the left colon and sigmoid colon with mural thickening and inflammatory changes. No discrete or drainable abscess. No obstruction or free air or free fluid. Isaac Rutherford MD Objective Remarks GENERAL: This is a well-nourished, well-developed patient, in no apparent distress. SKIN: No rashes, ecchymoses or lesions. Cool and dry. HEAD: Atraumatic. Normocephalic. No temporal or scalp tenderness. EYES: Pupils equal round and reactive. Extraocular motions intact. No scleral icterus. No injection or drainage. ENT: Nose without bleeding, purulent drainage or septal hematoma. Throat without erythema, tonsillar hypertrophy or exudate. Uvula midline. Airway patent. NECK: Trachea midline. No JVD or lymphadenopathy. Supple, nontender, no meningeal signs. CARDIOVASCULAR: Regular rate and rhythm without murmurs, gallops, or rubs. RESPIRATORY: Clear to auscultation. Breath sounds equal bilaterally. No wheezes , rales, or rhonchi. GASTROINTESTINAL: Abdomen soft, mild right lower quadrant tenderness on deep palpation, nondistended. No hepato-splenomegaly, or palpable masses. No guarding. MUSCULOSKELETAL: Extremities without clubbing, cyanosis, or edema. No joint tenderness, effusion, or edema noted. No calf tenderness. Negative Homans sign bilaterally. NEUROLOGICAL: Awake and alert. Cranial nerves II through XII intact. Motor and sensory grossly within normal limits. Five out of 5 muscle strength in all muscle groups. Normal speech. Medications and IVs Current Medications Medications (Trade) Dose Ordered Sig/Sujatha Route Start Time Stop Time Status Last Admin Sodium Chloride 2 ml 2 ml UNSCH PRN IV FLUSH 01/12/17 15:00 (NS 1000 ml Inj) 1,000 ml @ 100 mls/hr Q10H IV 01/12/17 17:58 01/14/17 10:16 (Tylenol) 650 mg Q4H PRN PO 01/12/17 18:00 (Zofran Inj) 4 mg Q6H PRN IVP 01/12/17 18:00 Heparin Sodium (Porcine) 5000 units 5,000 units Q8HR SQ 01/12/17 22:00 01/14/17 05:55 Metronidazole 100 ml @ 100 mls/hr Q6H IV 01/12/17 18:00 01/14/17 05:50 (Cipro 400 Mg Premix) 200 ml @ 200 mls/hr Q8H IV 01/13/17 01:00 01/14/17 08:54 (Morphine Inj) 2 mg Q3H PRN IV PUSH 01/12/17 19:15 (Morphine Inj) 4 mg Q3H PRN IV PUSH 01/12/17 19:15 (Symbicort 80-4.5 Mcg Inh) 2 puff Q12HR INH 01/13/17 21:00 01/14/17 08:53 (Valium) 10 mg BID PRN PO 01/13/17 12:00 01/14/17 10:16 (Atarax) 50 mg HS PO 01/13/17 21:00 01/13/17 20:20 (Zoloft) 50 mg DAILY PO 01/13/17 12:00 01/14/17 08:53 (Protonix) 20 mg DAILY PO 01/13/17 12:00 01/14/17 08:53 Urinary Catheter: No Vascular Central Line Catheter: No A/P Problem List: (1) Acute diverticulitis ICD Code: K57.92 Status: Acute (2) HTN (hypertension) ICD Code: I10 Status: Chronic (3) Hyperlipidemia ICD Code: E78.5 Status: Chronic (4) Hypotension ICD Code: I95.9 Status: Chronic (5) Anxiety ICD Code: F41.9 Status: Chronic (6) Tobacco use ICD Code: Z72.0 Status: Chronic Assessment and Plan (1) Acute diverticulitis Plan: Patient was admitted to the medical floor Treated with IV fluids, IV ciprofloxacin and IV Flagyl Initially kept nothing by mouth, started on clear liquid diet on day 2 Pain control provided with IV morphine General surgery consulted and following - appreciate recommendations Discontinue IV fluids, switch IV antibiotics to by mouth and DC IV morphine and start the patient oral pain medications. (2) HTN (hypertension) Plan: Antihypertensive medications held due to hypotension. Hypotension has resolved, however BP stable. Continue to hold antihypertensive medications. (3) Hyperlipidemia Plan: Resume statin. (4) Hypotension Plan: Systolic blood pressure in the 90s on admission - started on Iv fluids 01/13 BP low today in the high 80's - ordered 500 ml ns IV bolus, continue to hold bp meds. (5) Anxiety Plan: Will continue home Diazepam as needed. (6) Tobacco use Plan: Advised smoking cessation. Will Rx nicotine patch GI prophylaxis: PPI DVT prophylaxis: heparin SQ, SCD's Discharge Planning Possible discharge in a.m. pending clinical improvement if patient tolerates diet and pain remains controlled. Problem Qualifiers (1) HTN (hypertension): Qualified Code: I10 - Essential hypertension (2) Hyperlipidemia: Qualified Code: E78.5 - Hyperlipidemia, unspecified hyperlipidemia type (3) Hypotension: Qualified Code: I95.9 - Hypotension, unspecified hypotension type Cameron Figueroa MD January 14, 2017 11:20
[2017-01-14] MEDS ORDERED: oxyCODONE/ACETAMINOPHEN 5 MG/325 MG TAB PO PRN ×2 (11:30)
[2017-01-14] MEDS: metroNIDAZOLE 500 MG TAB PO SCH ×2 (13:14→21:52)
[2017-01-14] MEDS: hydrOXYzine HCL 50 MG TAB PO SCH (21:52)
[2017-01-14] MEDS: CIPROFLOXACIN 500 MG TAB PO SCH (21:52)
[2017-01-15] VITALS: BP 125/89; PULSE 59; RESP 20; TEMP 97.6; O2SAT 98
[2017-01-15 04:00] VITALS: BP 142/89; PULSE 65; RESP 20; TEMP 97.5; O2SAT 98
[2017-01-15] MEDS: HEPARIN SODIUM - SQ 10,000 UNITS/ML VIAL SQ SCH ×2 (05:51→14:22)
[2017-01-15] MEDS: metroNIDAZOLE 500 MG TAB PO SCH ×2 (05:51→14:22)
[2017-01-15 06:40] LABS: HEMATOCRIT 41.5 % (39.0-51.0); MEAN CELL VOLUME 90.5 FL (80.0-100.0); MEAN CORPUSCULAR HEMOGLOBIN 29.6 PG (27.0-34.0); MEAN CORPUSCULAR HGB CONC 32.7 % (32.0-36.0); PLATELET COUNT 167 TH/MM3 (150-450); RED BLOOD COUNT 4.58 MIL/MM3 (4.50-5.90); RED CELL DISTRIBUTION WIDTH 13.2 % (11.6-17.2); REVIEW FLAG FINAL; WHITE BLOOD COUNT 4.5 TH/MM3 (4.0-11.0)
[2017-01-15 06:45] LABS: POTASSIUM 3.8 MEQ/L (3.5-5.1)
[2017-01-15 06:47] LABS: BICARBONATE 27.4 MEQ/L (21.0-32.0)
[2017-01-15 08:03] VITALS: BP 141/87; PULSE 72; RESP 19; TEMP 98.3; O2SAT 94
[2017-01-15] MEDS: DIAZEPAM 10 MG TAB PO PRN (08:04)
[2017-01-15] MEDS: CIPROFLOXACIN 500 MG TAB PO SCH (08:04)
[2017-01-15] MEDS: SERTRALINE HCL 50 MG TAB PO SCH (08:04)
[2017-01-15] MEDS: PANTOPRAZOLE SOD 20 MG DELAYED RELEASE TAB PO SCH (08:04)
[2017-01-15] MEDS: BUDESONIDE-FORMOTEROL 80/4.5 MCG INHALER INH SCH (08:05)
--- NOTE | 2017-01-15 08:12 | PD.PN.STU ---
Subjective Remarks no complaints did well on full liquids diet normal but small BMs no blood in BMs minimal pain in LLQ Objective Vitals General: This is a well-nourished, well-developed man, in no apparent distress. Skin: No rashes, ecchymoses or lesions. Warm and dry. Head: Atraumatic. Normocephalic. Oral mucosa is pink and moist. Eyes: Pupils equal round and reactive. Extraocular motions intact. No scleral icterus. No injection or drainage. ENT: Throat without erythema. Neck: Trachea midline. No JVD. Cardiovascular: S1S2 RRR without murmurs, gallops, or rubs. Respiratory: Clear to auscultation. Breath sounds equal bilaterally. No wheezes , rales, or rhonchi. Gastrointestinal: Abdomen soft, minimal left lower quadrant tenderness palpation , nondistended. No hepato-splenomegaly, or palpable masses. Musculoskeletal: Extremities without clubbing, cyanosis, or edema. No calf tenderness. Neurological: Awake and alert. Cranial nerves II through XII intact. Normal speech. Vital Signs Date Time Temp Pulse Resp B/P Pulse Ox O2 Delivery O2 Flow Rate FiO2 01/15/17 08:03 98.3 72 19 141/87 94 01/15/17 04:00 97.5 65 20 142/89 98 01/15/17 00:00 97.6 59 20 125/89 98 01/14/17 22:00 61 01/14/17 20:00 97.7 65 16 151/97 99 01/14/17 16:00 98.6 73 20 120/78 97 01/14/17 12:00 97.3 71 20 112/78 99 I/O 01/14/17 01/14/17 01/14/17 01/15/17 01/15/17 01/15/17 07:00 15:00 23:00 07:00 15:00 23:00 Intake Total 1040 ml 830 ml 1440 ml Output Total 300 ml 400 ml 1600 ml Balance 740 ml 430 ml -160 ml Intake Oral 240 ml 830 ml 240 ml IV Total 800 ml 1200 ml Output Urine Total 300 ml 400 ml 1600 ml # Voids 4 # Bowel Movements 0 0 Result Diagram: 01/15/17 0610 01/15/17 0610 A/P Assessment and Plan Acute diverticulitis: Improving Switch IV Cipro to PO Switch IV Metronidazole to PO Switch full liquids diet to soft diet HTN: Continue to hold as BP well controlled HPL: Continue home medication Hypotension: Resolved Tobacco use: Discussed importance of cessation Anxiety: Diazepam prn Hypoalbuminemia: Likely inflammatory response Continue to monitor Andres Brown M3 January 15, 2017 08:12
[2017-01-15 12:11] VITALS: BP_SYST 14; BP_SYST 144; BP_DIAS 82; PULSE 82; RESP 18; TEMP 98.3; O2SAT 96
[2017-01-15] MEDS ORDERED: METR-1 PO (13:02)
[2017-01-15] MEDS ORDERED: CIPR-9 PO (13:02)
--- NOTE | 2017-01-15 13:03 | HHI.DCPOC ---
Discharge Care Plan Diagnosis: (1) Sepsis (2) HTN (hypertension) (3) Acute diverticulitis (4) Anxiety (5) Hyperlipidemia (6) Hypotension (7) Tobacco use Goals to Promote Your Health * To prevent worsening of your condition and complications * To maintain your health at the optimal level Directions to Meet Your Goals Take your medications as prescribed Follow your dietary instruction Follow activity as directed Keep your appointments as scheduled Take your immunizations and boosters as scheduled If your symptoms worsen call your PCP, if no PCP go to Urgent Care Center or Emergency Room Smoking is Dangerous to Your Health. Avoid second hand smoke Call the 24-hour hour crisis hotline for domestic abuse at Cameron Figueroa MD January 15, 2017 13:03
[2017-01-15] MEDS ORDERED: OXYC1TAB63 PO (15:03)
--- NOTE | 2017-01-15 15:03 | HHI.DS ---
Discharge Summary Admission Date January 12, 2017 at 17:39 Discharge Date: January 15, 2017 Admitting Diagnosis Acute diverticulitis (1) Acute diverticulitis ICD Code: K57.92 Diagnosis: Principal (2) HTN (hypertension) ICD Code: I10 Diagnosis: Principal (3) Hyperlipidemia ICD Code: E78.5 Diagnosis: Principal (4) Hypotension ICD Code: I95.9 Diagnosis: Principal (5) Anxiety ICD Code: F41.9 Diagnosis: Principal (6) Tobacco use ICD Code: Z72.0 Diagnosis: Principal Procedures none Brief History - From Admission This is a very pleasant 66-year-old male with past medical history significant for hypertension, hyperlipidemia, PTSD who presents to [facility] complaining of three-day history of left lower quadrant abdominal pain which started on this past Friday and progressively got worst after that point were yesterday the patient states took laxative thinking that the pain was related to constipation, however laxative did not improve the pain. Patient states the pain is localized in the left lower quadrant, nonradiating, 2/3 over 10 intensity, constant but worst on palpation up to an 8 or 9 associated with decreased appetite. The patient states he had chills and subjective fevers. Patient states he he has felt nauseous but denies vomiting. Denies diarrhea, chest pain or shortness of breath. During this interview the patient's blood pressure is in the high 90s systolic. CBC/BMP: 01/15/17 0610 01/15/17 0610 Significant Findings Laboratory Tests Test 01/12/17 01/13/17 01/14/17 01/15/17 15:22 05:50 05:04 06:10 Urine Leukocyte Esterase TRACE (NEG) Red Blood Count 4.42 MIL/MM3 4.48 MIL/MM3 (4.50-5.90) (4.50-5.90) Platelet Count 139 TH/MM3 149 TH/MM3 (150-450) (150-450) Neutrophils (%) (Auto) 70.5 % (16.0-70.0) Monocytes (%) (Auto) 10.8 % 9.2 % (0.0-8.0) (0.0-8.0) Potassium Level 3.3 MEQ/L (3.5-5.1) Estimat Glomerular Filtration 81 ML/MIN (>89) Rate Alkaline Phosphatase 36 U/L (45-117) 33 U/L (45-117) Albumin 3.1 GM/DL 2.9 GM/DL (3.4-5.0) (3.4-5.0) Blood Urea Nitrogen 5 MG/DL (7-18) Imaging Last Impressions Abdomen/Pelvis CT 01/12/17 1500 Signed Impressions: Service Date/Time: Thursday, January 12, 2017 16:06 - CONCLUSION: Acute diverticulitis at the junction between the left colon and sigmoid colon with mural thickening and inflammatory changes. No discrete or drainable abscess. No obstruction or free air or free fluid. Isaac Rutherford MD PE at Discharge GENERAL: This is a well-nourished, well-developed patient, in no apparent distress. SKIN: No rashes, ecchymoses or lesions. Cool and dry. HEAD: Atraumatic. Normocephalic. No temporal or scalp tenderness. EYES: Pupils equal round and reactive. Extraocular motions intact. No scleral icterus. No injection or drainage. ENT: Nose without bleeding, purulent drainage or septal hematoma. Throat without erythema, tonsillar hypertrophy or exudate. Uvula midline. Airway patent. NECK: Trachea midline. No JVD or lymphadenopathy. Supple, nontender, no meningeal signs. CARDIOVASCULAR: Regular rate and rhythm without murmurs, gallops, or rubs. RESPIRATORY: Clear to auscultation. Breath sounds equal bilaterally. No wheezes , rales, or rhonchi. GASTROINTESTINAL: Abdomen soft, mild right lower quadrant tenderness on deep palpation, nondistended. No hepato-splenomegaly, or palpable masses. No guarding. MUSCULOSKELETAL: Extremities without clubbing, cyanosis, or edema. No joint tenderness, effusion, or edema noted. No calf tenderness. Negative Homans sign bilaterally. NEUROLOGICAL: Awake and alert. Cranial nerves II through XII intact. Motor and sensory grossly within normal limits. Five out of 5 muscle strength in all muscle groups. Normal speech. Hospital Course (1) Acute diverticulitis Plan: Patient was admitted to the medical floor Treated with IV fluids, IV ciprofloxacin and IV Flagyl Initially kept nothing by mouth, started on clear liquid diet on day 2 Pain control provided with IV morphine General surgery consulted IV fluids discontinued, IV antibiotics switched to oral. Patient tolerated regular diet - Patient discharged home. (2) HTN (hypertension) Antihypertensive medications held due to hypotension. Hypotension resolved after IV fluid administration. Continue to hold antihypertensive medications. (3) Hyperlipidemia Continued statin. (4) Hypotension Systolic blood pressure in the 90s on admission - started on Iv fluids 5/8 BP low today in the high 80's - ordered 500 ml ns IV bolus, continue to hold bp meds. Hypotension resolved. (5) Anxiety Diazepam continued as needed. (6) Tobacco use Advised smoking cessation. Nicotine patch Rx'd GI prophylaxis: PPI DVT prophylaxis: heparin SQ, SCD's Pt Condition on Discharge: Stable Discharge Disposition: Discharge Home Discharge Time: > 30 minutes Discharge Instructions DIET: Follow Instructions for: Soft Diet Additional Diet Instructions: advance diet as tolerated Activities you can perform: Regular-No Restrictions Follow up Referrals: PCP Follow-up - 1 Week New Medications: Ciprofloxacin (Cipro) 500 Mg Tab 500 MG PO Q12HR Infection #20 TAB Metronidazole (Flagyl) 500 Mg Tab 500 MG PO Q8HR Infection #30 TAB Oxycodone-Acetaminophen (Oxycodone-Acetaminophen) 5-325 mg Tab 1 TAB PO Q4H PRN pain #20 TAB Continued Medications: Amlodipine (Amlodipine) 5 Mg Tab 5 MG PO DAILY Blood Pressure Management #30 Ref 0 TAB Aspirin (Aspirin) 325 Mg Tab 325 MG PO DAILY #30 Ref 0 TAB Budesonide-Formoterol Inh (Symbicort Inh) 80-4.5 Mcg/Act Aero 2 PUFF INH Q12HR Asthma Management #1 Ref 0 INHALER Diazepam (Valium) 10 Mg Tab 10 MG PO BID PRN ANXIETY Ref 0 TAB Fish Oil-Cholecalciferol (Fish Oil + D3) 1,200-1,000 Mg-Unit Cap 1 CAP PO DAILY Nutritional Supplement #30 Ref 0 CAP Hydroxyzine HCl (Hydroxyzine HCl) 50 Mg Tab 50 MG PO HS Ref 0 TAB Lisinopril-Hctz (Lisinopril-Hctz) 20-25 Mg Tab 1 TAB PO DAILY Blood Pressure Management #30 Ref 0 TAB Omeprazole (Omeprazole) 20 Mg Tab 20 MG PO DAILY #30 Ref 0 TAB Polyvinyl Alcohol Opth Drops (Artificial Tears Opth Drops) 1.4% Soln 1-2 DROP EACH EYE PRN PRN DRY EYE Ref 0 BOTTLE Pravastatin (Pravastatin) 40 Mg Tab 40 MG PO HS Cholesterol Management #30 Ref 0 TAB Sertraline (Sertraline) 50 Mg Tab 50 MG PO DAILY #30 Ref 0 TAB Sildenafil (Sildenafil) 20 Mg Tab 100 MG PO HS Pulm. arterial hypertension #90 Ref 0 TAB Cameron Figueroa MD January 15, 2017 15:03
--- NOTE | 2017-01-15 18:51 | HHI.PR ---
Subjective Subjective Notes Resting in bed Eager to get regular breakfast Objective Vitals/I&O Vital Signs Date Time Temp Pulse Resp B/P Pulse Ox O2 Delivery O2 Flow Rate FiO2 01/15/17 12:11 98.3 82 18 144/82 96 01/12/17 19:10 Room Air Labs Laboratory Tests Test 01/15/17 06:10 White Blood Count 4.5 Red Blood Count 4.58 Hemoglobin 13.6 Hematocrit 41.5 Mean Corpuscular Volume 90.5 Mean Corpuscular Hemoglobin 29.6 Mean Corpuscular Hemoglobin 32.7 Concent Red Cell Distribution Width 13.2 Platelet Count 167 Mean Platelet Volume 7.1 Sodium Level 143 Potassium Level 3.8 Chloride Level 107 Carbon Dioxide Level 27.4 Anion Gap 9 Blood Urea Nitrogen 5 Creatinine 0.99 Estimat Glomerular Filtration 92 Rate Random Glucose 97 Calcium Level 9.0 Date/Time Procedure Status Source Growth 01/12/17 15:20 Aerobic Blood Culture - Preliminary Resulted Blood Peripheral NO GROWTH IN 3 DAYS 01/12/17 15:20 Anaerobic Blood Culture - Preliminary Resulted Blood Peripheral NO GROWTH IN 3 DAYS Cardiovascular: Regular Lungs: Clear Abdomen: Non-distended, Other (slight LLQ pain with deep palpation ) Extremities: No edema A/P Assessment and Plan 66 year old male with acute diverticulitis -WBC remains normal -PO antibiotics -Advance to regular soft diet -Continue non op treatment Attending Statement patient seen at bedside wants regular diet pain better no fevers Attestation The exam, history, and the medical decision-making described in the above note were completed with the assistance of the mid-level provider. I reviewed and agree with the findings presented. I attest that I had a [id number] encounter with the patient on the same day, and personally performed and documented my assessment and findings in the medical record. Jenn Escalera January 15, 2017 18:51 Shin Weeks MD January 27, 2017 21:22
== END 2017-01-15 15:46 | disposition home or self-care (01) | DRG 392 ==
LOC: PHED 14:14 → PHEDA 17:39 → PH3A 20:08
PROVIDERS: ADMIT Hospitalist; ATTEND Hospitalist
DX: K57.32 Diverticulitis of large intestine without perforation or abscess without bleeding (principal); I95.9 Hypotension, unspecified; I10 Essential (primary) hypertension; E78.5 Hyperlipidemia, unspecified; F43.10 Post-traumatic stress disorder, unspecified; F41.9 Anxiety disorder, unspecified; F17.210 Nicotine dependence, cigarettes, uncomplicated; Z79.82 Long term (current) use of aspirin; E88.09 Other disorders of plasma-protein metabolism, not elsewhere classified
CPT/HCPCS: 74177; 80048; 80053; 81001; 83605; 83690; 83735; 84100; 85025; 85027; 85610; 85730; 87040; 96361; 96374; 96375; J0744; J1644; J2270; J2405; J3480; J7030; J7040; Q9967